=== PATIENT | male | born 1960 | race Two or more races ===

== ENCOUNTER 2019-03-29 18:08 | Emergency (ER) | payer BC, OTHER ==
--- NOTE | 2019-03-29 18:48 | ER Document Report ---
ED Medical Screen (RME) - General Chief Complaint: High Blood Pressure Stated Complaint: DIZZINESS/BLOOD PRESSURE ISSUE Time Seen by Provider: 03/29/19 18:40 Primary Care Provider: MILAGROS SEN MD [Primary Care Provider] - Follow up as needed Mode of Arrival: Ambulatory Information source: Patient Notes: 58-year-old male with history of high blood pressure presents to the emergency department with complaints of high blood pressure today feeling lightheaded dizziness. Reports he had some nausea with this dizziness. Also reports he had a cough for a week. Patient reports he supposed to be taking blood pressure medication but has not been taking it because he did not think he needed it. Denies fever vomiting diarrhea. I have greeted and performed a rapid initial assessment of this patient. A comprehensive ED assessment and evaluation of the patient, analysis of test results and completion of the medical decision making process will be conducted by additional ED providers. TRAVEL OUTSIDE OF THE [place] IN LAST 30 DAYS: No - Related Data Allergies/Adverse Reactions: Penicillins Adverse Reaction (Intermediate, Verified 03/29/19 18:40) Past Medical History - Social History Chew tobacco use (# tins/day): No Frequency of alcohol use: None Drug Abuse: None Past Surgical History: Reports: Hx Orthopedic Surgery - Immunizations Hx Diphtheria, Pertussis, Tetanus Vaccination: Yes Physical Exam - Vital signs Vitals: Temp Pulse Resp BP Pulse Ox 98.4 F 99 18 158/98 H 96 03/29/19 18:15 03/29/19 18:15 03/29/19 18:15 03/29/19 18:15 03/29/19 18:15 Course - Vital Signs Vital signs: Temp Pulse Resp BP Pulse Ox 98.4 F 99 18 158/98 H 96 03/29/19 18:15 03/29/19 18:15 03/29/19 18:15 03/29/19 18:15 03/29/19 18:15 Doctor's Discharge - Discharge Referrals: MILAGROS SEN MD [Primary Care Provider] - Follow up as needed
--- NOTE | 2019-03-29 19:26 | EKG REPORT ---
SEVERITY:- NORMAL ECG - SINUS RHYTHM : Confirmed by: Shannan Woodson MD 29-Mar-2019 19:25:29
[2019-03-29 19:30] LABS: ABSOLUTE EOSINOPHILS # (AUTO) 0.3 10^3/uL (0.0-0.6); ABSOLUTE LYMPHOCYTES (AUTO) 2.2 10^3/uL (0.5-4.7); ABSOLUTE MONOCYTES (AUTO) 0.6 10^3/uL (0.1-1.4); ABSOLUTE NEUT (AUTO) 5.1 10^3/uL (1.7-8.2); BASOPHILS % (AUTO) 0.4 % (0-2); EOSINOPHILS % (AUTO) 3.3 % (0-6); HEMOGLOBIN 13.8 g/dL (13.5-17.0); LYMPHOCYTES % (AUTO) 26.7 % (13-45); MEAN CORPUSCULAR HEMOGLOBIN 29.2 pg (27.0-33.4); MEAN CORPUSCULAR HGB CONC 33.8 g/dL (32.0-36.0); MEAN CORPUSCULAR VOLUME 87 fl (80-97); MONOCYTES % (AUTO) 7.9 % (3-13); PLATELET COUNT 238 10^3/uL (150-450); RED BLOOD COUNT 4.74 10^6/uL (4.35-5.55); RED CELL DISTRIBUTION WIDTH 14.5 % (11.5-14.0); SEGMENTED NEUTROPHILS % (AUTO) 61.7 % (42-78); TOTAL CELLS COUNTED % (AUTO) 100 %; WHITE BLOOD COUNT 8.2 10^3/uL (4.0-10.5)
--- NOTE | 2019-03-29 19:30 | RADIOLOGY REPORT (SQ) ---
EXAM DESCRIPTION: CHEST 2 VIEWS COMPLETED DATE/TIME: 03/29/2019 7:19 pm REASON FOR STUDY: cough COMPARISON: 06/24/2014 TECHNIQUE: Frontal and lateral radiographic views of the chest acquired. NUMBER OF VIEWS: Two view. LIMITATIONS: None. FINDINGS: LUNGS AND PLEURA: No pneumothorax. No consolidation or pleural effusion. MEDIASTINUM AND HILAR STRUCTURES: Stable. HEART AND VASCULAR STRUCTURES: Stable. BONES: No acute findings. HARDWARE: None in the chest. OTHER: No other significant finding. IMPRESSION: NO ACUTE FINDINGS. TECHNICAL DOCUMENTATION: JOB ID: [id number] [place]-72 2010 [employer]- All Rights Reserved Reading location - IP/workstation name: [email or web address]
[2019-03-29 19:51] LABS: ALBUMIN 4.1 g/dL (3.5-5.0); ALKALINE PHOSPHATASE 78 U/L (38-126); ANION GAP 11 (5-19); ASPARTATE AMINO TRANSFERASE 26 U/L (17-59); BILIRUBIN,DIRECT 0.3 mg/dL (0.0-0.4); BILIRUBIN,TOTAL 0.3 mg/dL (0.2-1.3); BLOOD UREA NITROGEN 15 mg/dL (7-20); CALCIUM 9.8 mg/dL (8.4-10.2); CARBON DIOXIDE 31 mmol/L (22-30); CHLORIDE 100 mmol/L (98-107); GLUCOSE 103 mg/dL (75-110); POTASSIUM 4.5 mmol/L (3.6-5.0); TOTAL PROTEIN 7.4 g/dL (6.3-8.2)
--- NOTE | 2019-03-29 20:56 | ER Document Report ---
ED Blood Pressure Problem - General Chief Complaint: High Blood Pressure Stated Complaint: DIZZINESS/BLOOD PRESSURE ISSUE Time Seen by Provider: 03/29/19 18:40 Primary Care Provider: MILAGROS SEN MD [Primary Care Provider] - Follow up as needed Mode of Arrival: Ambulatory Information source: Patient TRAVEL OUTSIDE OF THE [place] IN LAST 30 DAYS: No - HPI Patient complains to provider of: High blood pressure Onset: Just prior to arrival Onset/Duration: Gradual Quality of pain: No pain Severity: Moderate - Patient reports that he has a history of hypertension and has been on valsartan. States he has not taken it in about 6 months. Patient felt he did not need to use it anymore. But today he got agitated with a conver sation with his daughter and he felt his head hurt and he thought his blood pressure was elevated and indeed it was when he checked it. He checked it about 3 or 4 times and it continued to climb therefore he came to the emergency department. States he is feeling better now that he is away from his daughter in an argument agitation that they were discussing. Blood pressure has improved. And symptoms of headache and dizziness has improved. Associated symptoms: Headache, Lightheaded Similar symptoms previously: No Recently seen / treated by doctor: No - Related Data Allergies/Adverse Reactions: Penicillins Adverse Reaction (Intermediate, Verified 03/29/19 18:40) Past Medical History - General Information source: Patient - Social History Smoking Status: Never Smoker Chew tobacco use (# tins/day): No Frequency of alcohol use: None Drug Abuse: None Lives with: Family Family History: Reviewed & Not Pertinent Patient has suicidal ideation: No Patient has homicidal ideation: No Past Surgical History: Reports: Hx Orthopedic Surgery - Immunizations Hx Diphtheria, Pertussis, Tetanus Vaccination: Yes Physical Exam - Vital signs Vitals: Temp Pulse Resp BP Pulse Ox 98.4 F 99 18 158/98 H 96 03/29/19 18:15 03/29/19 18:15 03/29/19 18:15 03/29/19 18:15 03/29/19 18:15 Interpretation: Normal - General General appearance: Appears well, Alert - HEENT Head: Normocephalic, Atraumatic Eyes: Normal Pupils: PERRL - Respiratory Respiratory status: No respiratory distress Chest status: Nontender Breath sounds: Normal Chest palpation: Normal - Cardiovascular Rhythm: Regular Heart sounds: Normal auscultation Murmur: No - Abdominal Inspection: Normal Distension: No distension Bowel sounds: Normal Tenderness: Nontender Organomegaly: No organomegaly - Back Back: Normal, Nontender - Extremities General upper extremity: Normal inspection, Nontender, Normal color, Normal ROM, Normal temperature General lower extremity: Normal inspection, Nontender, Normal color, Normal ROM, Normal temperature, Normal weight bearing. No: Mary's sign - Neurological Neuro grossly intact: Yes Cognition: Normal Orientation: AAOx4 [place] Coma Scale Eye Opening: Spontaneous [place] Coma Scale Verbal: Oriented [place] Coma Scale Motor: Obeys Commands Sergey Coma Scale Total: 15 Speech: Normal Motor strength normal: LUE, RUE, LLE, RLE Sensory: Normal - Psychological Associated symptoms: Normal affect, Normal mood - Skin Skin Temperature: Warm Skin Moisture: Dry Skin Color: Normal Course - Re-evaluation Re-evalutation: 03/29/19 22:21 Patient's blood pressure has improved to 149/95. Symptoms of lightheadedness dizziness and headache has resolved. Patient reports that he had 1 time been on valsartan and he believes it was the lowest dose. States he has medications he believes at home that he never finished the bottle completely. Nonetheless I am going to write him for valsartan 40 mg once a day. I told him if his medicine is still good meaning less than a year old that he should take his blood pressure medicine as prescribed. Follow-up with his doctor in 1 to 2 days. Work note for today and tomorrow. - Vital Signs Vital signs: Temp Pulse Resp BP Pulse Ox 98.4 F 99 14 149/100 H 96 03/29/19 18:15 03/29/19 18:15 03/29/19 22:01 03/29/19 22:01 03/29/19 22:01 - Laboratory Result Diagrams: 03/29/19 19:05 03/29/19 19:05 Laboratory results interpreted by me: 03/29/19 03/29/19 19:05 19:05 RDW 14.5 H Carbon Dioxide 31 H - Diagnostic Test Radiology reviewed: Image reviewed, Reports reviewed Discharge - Discharge Clinical Impression: Hypertension Disposition: HOME, SELF-CARE Instructions: High Blood Pressure ([facility]) Prescriptions: Valsartan 40 mg PO DAILY #30 tablet Forms: Return to Work Referrals: OJEBUOBOH,IBIKUNLE, MD [Primary Care Provider] - Follow up as needed
[2019-03-29 23:10] VITALS: BP 142/106
== END 2019-03-29 23:06 | disposition home or self-care (01) ==
LOC: ER 18:08
DX: I10 Essential (primary) hypertension (principal); R42 Dizziness and giddiness; Z88.0 Allergy status to penicillin
CPT/HCPCS: 36415; 71046; 80053; 84484; 85025; 93005; 93010; 99284

== ENCOUNTER 2019-11-14 12:57 | Emergency (ER) | payer OTHER ==
[2019-11-14] MEDS ORDERED: ASPIRIN 81 MG TABLET, CHEWABLE PO ONE (13:53)
--- NOTE | 2019-11-14 13:53 | ER Document Report ---
ED Medical Screen (RME) - General Chief Complaint: Chest Pain > 30 Stated Complaint: BACK PAIN Time Seen by Provider: 11/14/19 13:47 Primary Care Provider: MILAGROS SEN MD [Primary Care Provider] - Follow up as needed Mode of Arrival: Ambulatory Information source: Patient Notes: 59-year-old male presented to ED complains that yesterday he started with right chest pain went through to the back then today he started having a sharp pain in the left subscapular area that is extremely painful sharp when he takes deep breaths. There is no tenderness to the abdomen. He does still have tenderness to the right chest as well. He is alert oriented respirations regular nonlabored at this time. Will get a chest pain protocol which will include a chest x-ray and have him seen by a provider. States he does not have any past medical history of anything except for broken bones as a child. 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 I have greeted and performed a rapid initial assessment of this patient. A comprehensive ED assessment and evaluation of the patient, analysis of test results and completion of medical decision making process will be conducted by an additional ED providers. TRAVEL OUTSIDE OF THE [place] IN LAST 30 DAYS: No - Related Data Allergies/Adverse Reactions: Penicillins Adverse Reaction (Intermediate, Verified 03/29/19 18:40) Past Medical History Past Surgical History: Reports: Hx Orthopedic Surgery - Immunizations Hx Diphtheria, Pertussis, Tetanus Vaccination: Yes Physical Exam - Vital signs Vitals: Temp Pulse Resp BP Pulse Ox 98.1 F 84 16 117/75 100 11/14/19 13:11 11/14/19 13:11 11/14/19 13:11 11/14/19 13:11 11/14/19 13:11 Course - Vital Signs Vital signs: Temp Pulse Resp BP Pulse Ox 98.1 F 84 16 117/75 100 11/14/19 13:11 11/14/19 13:11 11/14/19 13:11 11/14/19 13:11 11/14/19 13:11 Doctor's Discharge - Discharge Referrals: MILAGROS SEN MD [Primary Care Provider] - Follow up as needed
[2019-11-14 14:37] LABS: ABSOLUTE EOSINOPHILS # (AUTO) 0.4 10^3/uL (0.0-0.6); ABSOLUTE LYMPHOCYTES (AUTO) 2.3 10^3/uL (0.5-4.7); ABSOLUTE MONOCYTES (AUTO) 0.5 10^3/uL (0.1-1.4); ABSOLUTE NEUT (AUTO) 4.4 10^3/uL (1.7-8.2); BASOPHILS % (AUTO) 0.4 % (0-2); EOSINOPHILS % (AUTO) 5.2 % (0-6); HEMATOCRIT 42.7 % (37.9-51.0); HEMOGLOBIN 14.3 g/dL (13.5-17.0); LYMPHOCYTES % (AUTO) 30.2 % (13-45); MEAN CORPUSCULAR HEMOGLOBIN 29.3 pg (27.0-33.4); MEAN CORPUSCULAR HGB CONC 33.5 g/dL (32.0-36.0); MEAN CORPUSCULAR VOLUME 87 fl (80-97); MONOCYTES % (AUTO) 6.8 % (3-13); PLATELET COUNT 236 10^3/uL (150-450); RED CELL DISTRIBUTION WIDTH 14.4 % (11.5-14.0); SEGMENTED NEUTROPHILS % (AUTO) 57.4 % (42-78); TOTAL CELLS COUNTED % (AUTO) 100 %; WHITE BLOOD COUNT 7.6 10^3/uL (4.0-10.5)
[2019-11-14 15:10] LABS: ALKALINE PHOSPHATASE 68 U/L (38-126); ANION GAP 6 (5-19); ASPARTATE AMINO TRANSFERASE 25 U/L (17-59); BILIRUBIN,TOTAL 0.4 mg/dL (0.2-1.3); BLOOD UREA NITROGEN 16 mg/dL (7-20); CALCIUM 9.1 mg/dL (8.4-10.2); CARBON DIOXIDE 28 mmol/L (22-30); CHLORIDE 104 mmol/L (98-107); CREATINE KINASE 122 U/L (55-170); GLUCOSE 102 mg/dL (75-110); POTASSIUM 4.2 mmol/L (3.6-5.0)
--- NOTE | 2019-11-14 15:24 | ER Document Report ---
ED General - General Chief Complaint: Chest Pain > 30 Stated Complaint: BACK PAIN Time Seen by Provider: 11/14/19 13:47 Primary Care Provider: MILAGROS SEN MD [Primary Care Provider] - Follow up in 3-5 days Mode of Arrival: Ambulatory Notes: 59 only with hypertension presents with chest pain. For the last couple days he had right-sided chest pain that does not radiate and is constant. Not worse with exertion. 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 He had no shortness of breath nausea vomiting or sweating with his pain. Today he developed epigastric and right-sided chest pain which radiated around his left side to his back. No nausea no vomiting but is severe and preventing him from doing anything he laid in bed all day. No headache no unilateral neuro symptoms no vomiting no sweating no COVIDtype symptoms. Does not smoke marijuana, or cigarettes and does not do drugs or drink. TRAVEL OUTSIDE OF THE [place] IN LAST 30 DAYS: No - Related Data Allergies/Adverse Reactions: Penicillins Adverse Reaction (Intermediate, Verified 03/29/19 18:40) Past Medical History - General Information source: Patient - Social History Smoking Status: Never Smoker Chew tobacco use (# tins/day): No Frequency of alcohol use: None Drug Abuse: None Family History: Reviewed & Not Pertinent Past Surgical History: Reports: Hx Orthopedic Surgery - Immunizations Hx Diphtheria, Pertussis, Tetanus Vaccination: Yes Review of Systems - Review of Systems Notes: REVIEW OF SYSTEMS GEN: Denies fever, chills, weight loss ENT: Denies sore throat, nasal discharge, ear pain EYES: Denies blurry vision, eye pain, discharge CV: Chest pain RESP: Denies cough, shortness of breath, wheezing GI: Denies abdominal pain, nausea, vomiting, diarrhea MSK: Back pain SKIN: Denies rash, skin lesions LYMPH: Denies swollen glands/lymph nodes NEURO: Denies headache, focal weakness or numbness, dizziness PSYCH: Denies depression, suicidal or homicidal ideation PHYSICAL EXAMINATION General: No acute distress, well-nourished Head: Atraumatic, normocephalic ENT: Mouth normal, oropharynx moist, no exudates or tonsillar enlargement Eyes: Conjunctiva normal, pupils equal, lids normal Neck: No JVD, supple, no guarding CVS: Normal rate, regular rhythm, no murmurs Resp: No resp distress, equal and normal breath sounds bilaterally GI: Nondistended, soft, no tenderness to palpation, no rebound or guarding Ext: No deformities, no edema, normal range of motion in upper and lower ext Back: N mild left thoracic back tenderness, nothing in midline. Skin: No rash, warm Lymphatic: No lymphadeopathy noted Neuro: Awake, alert. Face symmetric. GCS 15. Physical Exam - Vital signs Vitals: Temp Pulse Resp BP Pulse Ox 98.1 F 84 16 117/75 100 11/14/19 13:11 11/14/19 13:11 11/14/19 13:11 11/14/19 13:11 11/14/19 13:11 Course - Re-evaluation Re-evalutation: 11/14/19 18:24 59-year-old male presents with with chest pain. He is had 2 to 3 days of chest pain resolved yesterday, that was right sided nonradiating nonexertional and did not change with movement or exertion, and without shortness of breath diaphoresis or vomiting. 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 Went away yesterday. Then today he woke up sat up engaging his abdominal muscles and began having left-sided chest pain which went around his left axilla to his back. That is been constant for several hours at least 4. No shortness of breath nausea vomiting tingling extremities abdominal pain or other symptoms. Patient does not smoke does not use drugs and is otherwise healthy. 11/14/19 19:29 Troponin negative. EKG normal. CTA for aneurysm dissection negative and no other findings are apparent. Patient was given Toradol and discharged home with follow-up with primary care. Doubt unstable angina I have discussed with the patient there likely diagnosis, aftercare plan, follow-up plans and my usual and customary return precautions. They verbalized understanding of this. - Vital Signs Vital signs: Temp Pulse Resp BP Pulse Ox 98.1 F 84 16 117/75 100 11/14/19 13:11 11/14/19 13:11 11/14/19 13:11 11/14/19 13:11 11/14/19 13:11 - Laboratory Result Diagrams: 11/14/19 14:23 11/14/19 14:23 Laboratory results interpreted by me: 11/14/19 14:23 RDW 14.4 H - Diagnostic Test Radiology reviewed: Image reviewed, Reports reviewed - EKG Interpretation by Me EKG shows normal: Sinus rhythm Rate: Normal Rhythm: NSR When compared to previous EKG there are: Previous EKG unavailable Discharge - Discharge Clinical Impression: Chest pain in adult Condition: Good Disposition: HOME, SELF-CARE Instructions: Chest Wall Pain ([facility]), Chest Pain of Unclear Cause ([facility]) Additional Instructions: Your testing in the emergency room did not show a serious cause of your chest pain including heart attack aortic dissection pancreatitis or any other serious illness That said you need to follow-up with your regular doctor within 1-2 days because a stress test may be indicated in the future. Referrals: MILAGROS SEN MD [Primary Care Provider] - Follow up in 3-5 days
--- NOTE | 2019-11-14 15:27 | RADIOLOGY REPORT (SQ) ---
EXAM DESCRIPTION: CHEST 2 VIEWS IMAGES COMPLETED DATE/TIME: 11/14/2019 2:49 pm REASON FOR STUDY: Chest pain COMPARISON: 03/29/2019 EXAM PARAMETERS: NUMBER OF VIEWS: two views TECHNIQUE: Digital Frontal and Lateral radiographic views of the chest acquired. RADIATION DOSE: NA LIMITATIONS: none FINDINGS: LUNGS AND PLEURA: No opacities, masses or pneumothorax. No pleural effusion. MEDIASTINUM AND HILAR STRUCTURES: No masses or contour abnormalities. HEART AND VASCULAR STRUCTURES: Heart normal size. No evidence for failure. BONES: No acute findings. HARDWARE: None in the chest. OTHER: No other significant finding. IMPRESSION: NO ACUTE RADIOGRAPHIC FINDING IN THE CHEST. TECHNICAL DOCUMENTATION: JOB ID: [id number] 2010 [employer]- All Rights Reserved Reading location - IP/workstation name: [email or web address]
--- NOTE | 2019-11-14 18:30 | RADIOLOGY REPORT (SQ) ---
EXAM DESCRIPTION: CTA CHEST; CTA ABDOMEN/PELVIS W WO IMAGES COMPLETED DATE/TIME: 11/14/2019 5:59 pm REASON FOR STUDY: cp to back COMPARISON: None. TECHNIQUE: CT scan of the abdominal aorta extending to the iliac bifurcation performed with and with out intravenous contrast using helical scanning technique with dynamic intravenous contrast injection . Images reviewed with lung, soft tissue, and bone windows. Reconstructed coronal and sagittal MPR im ages reviewed. All images stored on PACS. Advanced 3D imaging as volume rendering, MIPS, SSD performed? yes All CT scanners at this facility use dose modulation, iterative reconstruction, and/or weight based d osing when appropriate to reduce radiation dose to as low as reasonably achievable (ALARA). [facility]: Dose Right [facility]: CareDose [facility]: Dose Right [facility]: Teradose 4D [facility]: [email or web address] CONTRAST TYPE AND DOSE: contrast/concentration: Isovue 350.00 mmol/ml; Total Contrast Delivered: 99. 0 ml; Total Saline Delivered: 69.0 ml RENAL FUNCTION: GFR > 60. LIMITATIONS: None. FINDINGS: NON-CONTRASTED IMAGING: Bilateral renal calcifications. No other significant organ calcifi cations. POST-CONTRAST IMAGING: AORTA AND VESSELS: No aneurysm. No dissection. Renal arteries, SMA, celiac without stenosis. LUNGS: No significant findings. No nodules or infiltrates. LIVER: Normal size. No masses or dilated ducts. SPLEEN: Normal size. No focal lesions. PANCREAS: No masses. No significant calcifications. No adjacent inflammation or peripancreatic fluid collections. Pancreatic duct not dilated. GALLBLADDER: No identified stones by CT criteria. No inflammatory changes to suggest cholecystitis. ADRENAL GLANDS: No significant masses or asymmetry. RIGHT KIDNEY AND URETER: No urinary tract obstruction. Parenchymal cysts and stones. LEFT KIDNEY AND URETER: No urinary tract obstruction.Parenchymal cysts and stones. RETROPERITONEUM: No retroperitoneal adenopathy, hemorrhage or masses. BOWEL AND PERITONEAL CAVITY: No masses or inflammatory changes. No free fluid or peritoneal masses. APPENDIX: Normal. ABDOMINAL WALL: No masses. No hernias. BONY STRUCTURES: No significant or acute findings. 3-D IMAGING: Confirms the above findings. OTHER: No other significant finding. IMPRESSION: NO AORTIC ANEURYSM, DISSECTION OR SIGNIFICANT STENOSIS. NO SIGNIFICANT FINDINGS. TECHNICAL DOCUMENTATION: JOB ID: [id number] [place]-72 Quality ID # [id number]: Final reports with documentation of one or more dose reduction techniques (e.g., Au tomated exposure control, adjustment of the mA and/or kV according to patient size, use of iterative reconstruction technique) 2010 [employer]- All Rights Reserved Reading location - IP/workstation name: [email or web address]
--- NOTE | 2019-11-14 18:30 | RADIOLOGY REPORT (SQ) ---
EXAM DESCRIPTION: CTA CHEST; CTA ABDOMEN/PELVIS W WO IMAGES COMPLETED DATE/TIME: 11/14/2019 5:59 pm REASON FOR STUDY: cp to back COMPARISON: None. TECHNIQUE: CT scan of the abdominal aorta extending to the iliac bifurcation performed with and with out intravenous contrast using helical scanning technique with dynamic intravenous contrast injection . Images reviewed with lung, soft tissue, and bone windows. Reconstructed coronal and sagittal MPR im ages reviewed. All images stored on PACS. Advanced 3D imaging as volume rendering, MIPS, SSD performed? yes All CT scanners at this facility use dose modulation, iterative reconstruction, and/or weight based d osing when appropriate to reduce radiation dose to as low as reasonably achievable (ALARA). [facility]: Dose Right [facility]: CareDose [facility]: Dose Right [facility]: Teradose 4D [facility]: [employer] CONTRAST TYPE AND DOSE: contrast/concentration: Isovue 350.00 mmol/ml; Total Contrast Delivered: 99. 0 ml; Total Saline Delivered: 69.0 ml RENAL FUNCTION: GFR > 60. LIMITATIONS: None. FINDINGS: NON-CONTRASTED IMAGING: Bilateral renal calcifications. No other significant organ calcifi cations. POST-CONTRAST IMAGING: AORTA AND VESSELS: No aneurysm. No dissection. Renal arteries, SMA, celiac without stenosis. LUNGS: No significant findings. No nodules or infiltrates. LIVER: Normal size. No masses or dilated ducts. SPLEEN: Normal size. No focal lesions. PANCREAS: No masses. No significant calcifications. No adjacent inflammation or peripancreatic fluid collections. Pancreatic duct not dilated. GALLBLADDER: No identified stones by CT criteria. No inflammatory changes to suggest cholecystitis. ADRENAL GLANDS: No significant masses or asymmetry. RIGHT KIDNEY AND URETER: No urinary tract obstruction. Parenchymal cysts and stones. LEFT KIDNEY AND URETER: No urinary tract obstruction.Parenchymal cysts and stones. RETROPERITONEUM: No retroperitoneal adenopathy, hemorrhage or masses. BOWEL AND PERITONEAL CAVITY: No masses or inflammatory changes. No free fluid or peritoneal masses. APPENDIX: Normal. ABDOMINAL WALL: No masses. No hernias. BONY STRUCTURES: No significant or acute findings. 3-D IMAGING: Confirms the above findings. OTHER: No other significant finding. IMPRESSION: NO AORTIC ANEURYSM, DISSECTION OR SIGNIFICANT STENOSIS. NO SIGNIFICANT FINDINGS. TECHNICAL DOCUMENTATION: JOB ID: [id number] [place]-72 Quality ID # [id number]: Final reports with documentation of one or more dose reduction techniques (e.g., Au tomated exposure control, adjustment of the mA and/or kV according to patient size, use of iterative reconstruction technique) 2010 [employer]- All Rights Reserved Reading location - IP/workstation name: [email or web address]
[2019-11-14] MEDS ORDERED: KETOROLAC TROMETHAMINE INJ/PF 30 MG/1 ML SDV IV ONE (19:29)
[2019-11-14 19:44] VITALS: BP 129/81
--- NOTE | 2019-11-14 23:13 | EKG REPORT ---
SEVERITY:- BORDERLINE ECG - SINUS RHYTHM PROBABLE LEFT ATRIAL ABNORMALITY : Confirmed by: Homero Dunaway MD 14-Nov-2019 23:12:54
== END 2019-11-14 19:52 | disposition home or self-care (01) ==
LOC: ER 12:57
DX: R07.9 Chest pain, unspecified (principal); R10.13 Epigastric pain; M54.9 Dorsalgia, unspecified
CPT/HCPCS: 93005; 99285; 96374; 36415; 82550; 85025; 80053; 84484; 71046; 71275; 74174; 93010; J1885

== ENCOUNTER → 2019-11-30 | Outpatient (CLI) | payer OTHER ==
[~2019-11-30] MED LIST: REGADENOSON INJ 0.4 MG/5 ML DISP.SYRIN IV ONE
--- NOTE | 2019-11-30 14:16 | DRAGON STRESS TEST REPORT ---
Pharmacological nuclear stress test Date: November 30, 2019 Referring physician: Darnell Ford MD Performing physician: Homero Dunaway MD Indication: Chest pain Clinical history 59-year-old male with medical history significant for recent evaluation for chest pain. Initial work-up in the emergency room was negative. Pharmacological stress test has been requested. Procedure The patient presented to the stress lab. Initially rest images were obtained according to standard protocol after the injection of 15 millicurie technetium 99m sestamibi. Subsequently the patient underwent pharmacological stress utilizing 0.4 mg of regadenoson intravenously. The patient's EKG and vital signs were monitored throughout the procedure. Subsequently patient was injected with 42.2 millicuries of technetium 99m sestamibi. After a period of rest, stress images were obtained according to standard protocol. EKG showed sinus rhythm at 70 beats per minute. The patient's stress EKG did not show any evidence for myocardial ischemia. There were no arrhythmias observed. Raw as well as processed rest and stress images were reviewed. There was mild gut uptake which did not interfere with the study. The rest and stress images show uniform uptake of radioactive isotope without any fixed or reversible defects to suggest myocardial ischemia or myocardial infarction. At rest myocardial contractility is normal with ejection fraction estimated at 74%. The calculated ejection fraction post stress is 31 % with diffuse hypokinesis. The TID ratio is 1.13. Conclusion The stress EKG is negative for myocardial ischemia There is no scintigraphic evidence of myocardial infarction or ischemia provoked by pharmacological stress. There is abnormal contractility post stress with ejection fraction of 31%. Would recommend alternate imaging modality such as transthoracic echocardiogram to evaluate left ventricular ejection fraction. MTDD
== END ==
LOC: RAD 06:40
PROVIDERS: ATTEND Internal Medicine
DX: R07.9 Chest pain, unspecified (principal)
CPT/HCPCS: 93017; 78452; A9500; J2785; Q9969

== ENCOUNTER 2020-01-18 17:33 | Emergency (ER) | payer OTHER ==
--- NOTE | 2020-01-18 18:34 | ER Document Report ---
ED Medical Screen (RME) - General Chief Complaint: Shortness Of Breath Stated Complaint: SHORTNESS OF BREATH Time Seen by Provider: 01/18/20 18:32 Primary Care Provider: MILAGROS SEN MD [Primary Care Provider] - Follow up as needed TRAVEL OUTSIDE OF THE [place] IN LAST 30 DAYS: No - HPI Notes: 01/18/20 18:33 59-year-old male with past medical history for coronavirus to the emergency department with complaints of shortness of breath. He was sent by his primary care physician. He states he is having a telemetry visit with his primary care when he is asked if he was feeling short of breath. He admits that he has been feeling short of breath for past several days. Tested positive for Covid 19 on January 05. He states that he has been fever free for about 4 days. He still continues to have a little bit of diarrhea. He does admit that he does feel little bit more short of breath. He states that his primary care got him to get a chest x-ray and then called him back and told him that he had a pneumonia. He states that his primary care wanted him to come to the emergency department for further evaluation. I performed a brief medical screening exam on the patient determined that the patient needs further evaluation and management by main side provider. I have placed initial orders to help expedite care. - Related Data Allergies/Adverse Reactions: Penicillins Adverse Reaction (Intermediate, Verified 03/29/19 18:40) Past Medical History Past Surgical History: Reports: Hx Orthopedic Surgery - Immunizations Hx Diphtheria, Pertussis, Tetanus Vaccination: Yes Physical Exam - Vital signs Vitals: Temp Pulse Resp BP Pulse Ox 98.2 F 75 16 126/86 H 96 01/18/20 17:41 01/18/20 17:41 01/18/20 17:41 01/18/20 17:41 01/18/20 17:41 Course - Vital Signs Vital signs: Temp Pulse Resp BP Pulse Ox 98.2 F 75 16 126/86 H 96 01/18/20 17:41 01/18/20 17:41 01/18/20 17:41 01/18/20 17:41 01/18/20 17:41 Doctor's Discharge - Discharge Referrals: MILAGROS SEN MD [Primary Care Provider] - Follow up as needed
[2020-01-18 20:10] LABS: ABSOLUTE EOSINOPHILS # (AUTO) 0.2 10^3/uL (0.0-0.6); ABSOLUTE LYMPHOCYTES (AUTO) 2.3 10^3/uL (0.5-4.7); ABSOLUTE MONOCYTES (AUTO) 0.9 10^3/uL (0.1-1.4); ABSOLUTE NEUT (AUTO) 3.9 10^3/uL (1.7-8.2); BASOPHILS % (AUTO) 0.4 % (0-2); HEMATOCRIT 37.5 % (37.9-51.0); HEMOGLOBIN 13.1 g/dL (13.5-17.0); LYMPHOCYTES % (AUTO) 31.7 % (13-45); MEAN CORPUSCULAR HEMOGLOBIN 29.9 pg (27.0-33.4); MEAN CORPUSCULAR VOLUME 85 fl (80-97); MONOCYTES % (AUTO) 11.7 % (3-13); PLATELET COUNT 345 10^3/uL (150-450); RED BLOOD COUNT 4.39 10^6/uL (4.35-5.55); SEGMENTED NEUTROPHILS % (AUTO) 53.2 % (42-78); TOTAL CELLS COUNTED % (AUTO) 100 %; WHITE BLOOD COUNT 7.4 10^3/uL (4.0-10.5)
[2020-01-18] MEDS ORDERED: AZITHROMYCIN INJ 500 MG VIAL IV ONE (20:21)
[2020-01-18 20:23] LABS: ALBUMIN 3.5 g/dL (3.5-5.0); ALKALINE PHOSPHATASE 75 U/L (38-126); ANION GAP 7 (5-19); ASPARTATE AMINO TRANSFERASE 36 U/L (17-59); BILIRUBIN,DIRECT 0.3 mg/dL (0.0-0.4); BILIRUBIN,TOTAL 0.3 mg/dL (0.2-1.3); BLOOD UREA NITROGEN 15 mg/dL (7-20); CALCIUM 9.4 mg/dL (8.4-10.2); CARBON DIOXIDE 31 mmol/L (22-30); CHLORIDE 103 mmol/L (98-107); GLUCOSE 83 mg/dL (75-110); POTASSIUM 4.2 mmol/L (3.6-5.0); TOTAL PROTEIN 6.6 g/dL (6.3-8.2)
--- NOTE | 2020-01-18 20:23 | ER Document Report ---
ED Respiratory Problem - General Chief Complaint: Shortness Of Breath Stated Complaint: SHORTNESS OF BREATH Time Seen by Provider: 01/18/20 18:32 Primary Care Provider: MILAGROS SEN MD [Primary Care Provider] - Follow up tomorrow (Call to [facility] for a follow-up appointment in 2 days.) TRAVEL OUTSIDE OF THE [place] IN LAST 30 DAYS: No - Related Data Allergies/Adverse Reactions: Penicillins Adverse Reaction (Intermediate, Verified 01/18/20 19:56) Past Medical History - Social History Smoking Status: Former Smoker Family History: Reviewed & Not Pertinent Patient has homicidal ideation: No Past Surgical History: Reports: Hx Orthopedic Surgery - Immunizations Hx Diphtheria, Pertussis, Tetanus Vaccination: Yes Physical Exam - Vital signs Vitals: Temp Pulse Resp BP Pulse Ox 98.2 F 75 16 126/86 H 96 01/18/20 17:41 01/18/20 17:41 01/18/20 17:41 01/18/20 17:41 01/18/20 17:41 Course - Re-evaluation Re-evalutation: 01/18/2020 2100 Patient is aware that I have spoken with his primary care physician Dr. Sen who would like patient to have an ABG. If the ABG does not show hypoxia patient can be discharged home with outpatient follow-up. Patient is aware that we are waiting for the ABG to be drawn. 01/18/2020 2300 Nurses been unable to get ABGs. Respiratory has been notified awaiting respiratory therapy to come draw the ABGs. 01/19/20 00:07 Patient is resting comfortably he is in no acute distress at this time. Vital signs are stable. ABGs do not show hypoxia. Case was staffed and labs reviewed with ED attending Dr. Alonzo. patient was given his first dose of IV Zithromax in the emergency room. He will be discharged home on p.o. Zithromax outpatient follow-up with his primary care physician in the next 2 to 3 days. Patient was given strict return to the emergency room guidelines. Return for a ny new or worsening symptoms. All questions were answered. Patient verbalized understanding and agrees with plan of care. 01/19/20 00:07 01/19/20 00:08 01/19/20 00:25 - Vital Signs Vital signs: Temp Pulse Resp BP Pulse Ox 98.0 F 64 18 139/92 H 98 01/19/20 00:14 01/19/20 00:14 01/19/20 00:14 01/19/20 00:14 01/19/20 00:14 - Laboratory Result Diagrams: 01/18/20 19:52 01/18/20 19:52 Laboratory results interpreted by me: 01/18/20 01/18/20 01/18/20 19:52 19:52 23:20 Hgb 13.1 L Hct 37.5 L Carbonic Acid 1.56 H ABG pCO2 51.9 H ABG HCO3 29.8 H ABG Total CO2 31.4 H Carbon Dioxide 31 H - Diagnostic Test Radiology reviewed: Reports reviewed - EKG Interpretation by Me EKG shows normal: Sinus rhythm Rate: Normal Additional EKG results interpreted by me: 01/18/20 20:53 EKG was interpreted by ER physician Dr. Abel No acute STEMI Normal sinus rhythm Rate [address] elevations Unchanged from previous EKG of 11/14/2019 - Consults Dr. Sen Time consulted: 21:00 Reason for consultation: 01/18/20 21:00 Reviewed lab and vital signs with Dr. Sen. Would like ABGs. States that patient is not hypoxic he can be discharged home on p.o. Zithromax. If ABGs are abnormal call him back for admission. Discharge - Discharge Clinical Impression: COVID-19 Pneumonia Qualifiers: Pneumonia type: due to unspecified organism Laterality: bilateral Lung location: unspecified part of lung Qualified Code(s): J18.9 - Pneumonia, unspecified organism Condition: Stable Disposition: HOME, SELF-CARE Instructions: Pneumonia ([facility]) Additional Instructions: You are required to continue to self quarantine until your symptoms have resolved. Take antibiotics as prescribed. Recheck with your primary care physician in 2 days. Return to the emergency room for any new or worsening symptoms. Prescriptions: Azithromycin 250 mg PO DAILY 4 Days #4 tablet Referrals: MILAGROS SEN MD [Primary Care Provider] - Follow up tomorrow (Call tomorrow for a follow-up appointment in 2 days.)
[2020-01-18 23:47] LABS: ARTERIAL BLOOD BASE EXCESS 3.6 mmol/L; ARTERIAL BLOOD H2CO3 1.56 mmol/L (1.05-1.35); ARTERIAL BLOOD HCO3 29.8 mmol/L (20-24); ARTERIAL BLOOD O2 SATURATION 95.8 % (94-98); ARTERIAL BLOOD PCO2 51.9 mmHg (35-45); ARTERIAL BLOOD PH 7.38 (7.35-7.45); ARTERIAL BLOOD PO2 82.5 mmHg (80-100); ARTERIAL BLOOD TOTAL CO2 31.4 mmol/L (23-27)
[2020-01-18 23:49] LABS: ARTERIAL BLOOD FIO2 98%
[2020-01-19 00:15] VITALS: BP 139/92
--- NOTE | 2020-01-19 10:05 | EKG REPORT ---
SEVERITY:- NORMAL ECG - SINUS RHYTHM : Confirmed by: Homero Dunaway MD 19-Jan-2020 10:04:21
== END 2020-01-19 00:22 | disposition home or self-care (01) ==
LOC: ER 17:33
DX: U07.1 COVID-19 (principal); J12.89 Other viral pneumonia; R06.02 Shortness of breath; Z88.0 Allergy status to penicillin; Z87.891 Personal history of nicotine dependence
CPT/HCPCS: 93005; 99284; 96365; 36415; 87040; 82803; 83605; 85025; 80053; 84484; 93010; 36600; J0456

== ENCOUNTER → 2020-01-18 | Outpatient (CLI) | payer OTHER ==
--- NOTE | 2020-01-18 16:33 | RADIOLOGY REPORT (SQ) ---
EXAM DESCRIPTION: CHEST 2 VIEWS IMAGES COMPLETED DATE/TIME: 01/18/2020 3:24 pm REASON FOR STUDY: U07.1 COVID-19 COMPARISON: 11/14/2019 EXAM PARAMETERS: NUMBER OF VIEWS: two views TECHNIQUE: Digital Frontal and Lateral radiographic views of the chest acquired. RADIATION DOSE: NA LIMITATIONS: none FINDINGS: LUNGS AND PLEURA: Subtle diffuse bilateral ground-glass opacities. No pleural effusion or pneumothorax. MEDIASTINUM AND HILAR STRUCTURES: No masses or contour abnormalities. HEART AND VASCULAR STRUCTURES: Heart normal size. No evidence for failure. BONES: No acute findings. HARDWARE: None in the chest. OTHER: No other significant finding. IMPRESSION: Subtle diffuse bilateral ground-glass opacities compatible with given history of Covid-1 9 pneumonia. TECHNICAL DOCUMENTATION: JOB ID: [id number] 2010 [employer]- All Rights Reserved Reading location - IP/workstation name: [email or web address]
== END ==
LOC: RAD 15:12
PROVIDERS: ATTEND Internal Medicine
DX: Z09 Encounter for follow-up examination after completed treatment for conditions other than malignant neoplasm (principal); Z87.01 Personal history of pneumonia (recurrent); Z86.19 Personal history of other infectious and parasitic diseases
CPT/HCPCS: 71046